=== PATIENT | female | born 1975 | race Caucasian/White ===

== ENCOUNTER 2022-12-21 09:36 | Day surgery (SDC) | payer OTHER ==
[~2022-12-21] VITALS: Ht 160 cm; Wt 114.8 kg
[2022-12-21] MEDS ORDERED: fentaNYL citrate 0.05 MG/ML VIAL ONE ×2 (11:01)
[2022-12-21] MEDS ORDERED: diphenhydrAMINE 50 MG/ML VIAL ONE (11:01)
[2022-12-21] MEDS ORDERED: MIDAZOLAM 2 MG/2 ML VIAL ONE (11:02)
[2022-12-21] MEDS ORDERED: MIDAZOLAM 5 MG/5 ML VIAL ONE (11:11)
[2022-12-21] MEDS ORDERED: MIDAZOLAM 5 MG/5 ML VIAL IV ONE (12:00)
[2022-12-21] MEDS ORDERED: fentaNYL citrate 0.05 MG/ML VIAL IVP ONE (12:00)
== END 2022-12-21 12:20 | disposition home or self-care (01) ==
LOC: MDS 09:36 → MMU 10:31 → MDS 12:20
PROVIDERS: ATTEND Internal Medicine Gastroenterology
DX: Z12.11 Encounter for screening for malignant neoplasm of colon (principal); K50.00 Crohn's disease of small intestine without complications; I10 Essential (primary) hypertension; J45.909 Unspecified asthma, uncomplicated; F32.A Depression, unspecified; Z86.73 Personal history of transient ischemic attack (TIA), and cerebral infarction without residual deficits; Z80.0 Family history of malignant neoplasm of digestive organs; F17.210 Nicotine dependence, cigarettes, uncomplicated; Z88.6 Allergy status to analgesic agent; Z88.8 Allergy status to other drugs, medicaments and biological substances; Z79.899 Other long term (current) drug therapy
CPT/HCPCS: 43235; 45378; J2250; J3010; J1200